=== PATIENT | female | born 1990 | race Caucasian/White ===

== ENCOUNTER → 2018-07-21 | Outpatient (CLI) | payer BC ==
[~2018-07-21] MED LIST: MOTRIN 800800 MG/TAB PO; NO HOME MEDICATIONS; NORCO 325 MG-51 TAB PO; PERCOCET 325 MG1 TA2 PO
== END ==
LOC: COL.RAD 07-19 09:45
DX: R10.11 Right upper quadrant pain (principal)

== ENCOUNTER → 2019-05-21 | Outpatient (CLI) | payer SELFPAY | LOC: COL.RAD 10:17 | DX: T18.8XXA Foreign body in other parts of alimentary tract, initial encounter (principal) ==

== ENCOUNTER 2024-02-05 14:45 | Emergency (ER) | payer OTHER ==
[~2024-02-05] VITALS: Ht 157.5 cm; Wt 91.8 kg
[2024-02-05 14:53] VITALS: TEMP 98.4
[2024-02-05 15:49] LABS: COLLECTION METHOD CLEAN CATCH
[2024-02-05 16:12] LABS: PH 5.5 (5.0-8.5); URINE APPEARANCE CLOUDY (CLEAR/HAZY); URINE BLOOD 3+ (NEGATIVE); URINE COLOR Dark Yellow (YELLOW); URINE GLUCOSE NEGATIVE (NEGATIVE); URINE KETONE 1+ (NEGATIVE); URINE NITRATE NEGATIVE (NEGATIVE); URINE PROTEIN(semi-quant) 1+ (NEGATIVE)
[2024-02-05 16:13] LABS: URINE RBC >50 /hpf (0-2)
[2024-02-05 16:40] VITALS: BP 118/80; PULSE 84
== END 2024-02-05 16:40 | disposition home or self-care (01) ==
LOC: COL.ER 14:45
PROVIDERS: Nurse Practitioner
DX: N93.8 Other specified abnormal uterine and vaginal bleeding (principal)